=== PATIENT | male | born 1970 | race Caucasian/White ===

== ENCOUNTER 2022-02-26 13:41 | Inpatient (IN) | payer MEDICAID, OTHER ==
[~2022-02-26] VITALS: Ht 170.2 cm; Wt 86.6 kg
[2022-02-26 13:45] VITALS: BP_SYST 139
--- NOTE | 2022-02-26 14:45 | NUR ---
First contact with pt. CC of chest pain. Pt states that he did not take his medication and feels that his blood sugar is high. Pt is AxOx4, GCS 15, speech is clear, and skins are intact. Awaiting reevaluation and further orders.
[2022-02-26] MEDS ORDERED: NACL 0.9% 1,000 ML IV ONE ×2 (15:00→16:15)
[2022-02-26 15:12] LABS: BASOPHILS # (AUTO) 0.1 K/uL (0.0-0.2); BASOPHILS % (AUTO) 0.5 % (0.0-2.0); HEMATOCRIT 45.3 % (36-54); HEMOGLOBIN 14.7 g/dL (14.0-18.0); LYMPHOCYTES # (AUTO) 1.3 K/uL (1.0-5.5); LYMPHOCYTES % (AUTO) 6.9 % (20.5-51.5); MEAN CORPUSCULAR HEMOGLOBIN 29 pg (27-31); MEAN CORPUSCULAR HGB CONC 32 % (32-36); MEAN CORPUSCULAR VOLUME 89 fL (79.0-98.0); MONOCYTES # (AUTO) 0.4 K/uL (0.0-1.0); MONOCYTES % (AUTO) 2.1 % (1.7-9.3); NEUTROPHILS # (AUTO) 17.1 K/uL (1.8-7.7); NEUTROPHILS % (AUTO) 90.5 % (40.0-70.0); PLATELET COUNT (AUTO) 397 K/uL (130-430); RED BLOOD CELL COUNT(AUTO) 5.07 MIL/uL (4.2-6.2); RED CELL DISTRIBUTION WIDTH 13.1 % (9.0-15.0); WHITE BLOOD COUNT (AUTO) 18.9 K/uL (4.8-10.8)
[2022-02-26] MEDS ORDERED: INSULIN REGULAR, HUMAN 10 UNITS/0.1 ML INJ IVP ONE (15:15)
[2022-02-26] MEDS ORDERED: INSULIN REGULAR, HUMAN 100 UNITS in NS 99 ML IV ONE ×4 (15:15→18:15)
[2022-02-26 15:27] LABS: CALCIUM 9.7 mg/dL (8.4-11.0); CREATININE 1.91 mg/dL (0.55-1.30); POTASSIUM 4.9 mmol/L (3.5-5.1)
[2022-02-26 15:36] LABS: ALBUMIN 3.9 g/dL (3.4-4.8); TOTAL BILIRUBIN 0.6 mg/dL (0.0-1.0)
[2022-02-26 16:11] LABS: ACETONE, SERUM MODERATE (NEGATIVE)
[2022-02-26] MEDS ORDERED: PIPERACILLIN/TAZO 3.375 GM in NS 50 ML IV ONE (16:30)
[2022-02-26] MEDS ORDERED: NACL 0.9% 1,000 ML IV SCH (18:15)
--- NOTE | 2022-02-26 19:30 | NUR ---
was given reprt by outgoing nurse Ty. pts vtls are within normal limits. pt is alert and stable. reminded pt that he needed to keep are straight to allow infusion of insulin to infuse.
[2022-02-26] MEDS ORDERED: LORazepam 2 MG/ML VIAL IVP PRN (21:15)
[2022-02-26] MEDS ORDERED: ONDANSETRON HCL 4 MG/2 ML VIAL IVP PRN (21:15)
[2022-02-26] MEDS ORDERED: INSULIN REGULAR, HUMAN 100 UNITS/ML, 10 ML VIAL IVP ONE (21:45)
--- NOTE | 2022-02-26 21:50 | NUR ---
documented second bag of fluids/prevs started on last shift but no documentd/
--- NOTE | 2022-02-26 21:55 | NUR ---
VERBAL ORDERS RECEIVED BY DR. INTERIANO. 15 U OF REGULAR INSULIN IVP NOW. DKA PROTOCOL 0.9% NORMAL SALINE 200 MLS/HR. ALL ORDER PLACED IN CPOE.
[2022-02-26] MEDS ORDERED: DEXTROSE 50% JECT 50 ML DISP.SYRIN IVP PRN (22:00)
[2022-02-26] MEDS ORDERED: INSULIN REGULAR, HUMAN 100 UNITS in NS 99 ML IV PRN ×2 (22:00)
[2022-02-26] MEDS ORDERED: PIPERACILLIN/TAZOBACTAM 3.375 GM/VIAL (ZOSYN) IV ONE (22:20)
--- NOTE | 2022-02-26 22:25 | NUR ---
PROVIDED RPRT TO [facility] ICU PT WILL BE FLIP TO ROOM 27
[2022-02-26 22:26] LABS: PHOSPHORUS 5.3 mg/dL (2.7-4.5)
--- NOTE | 2022-02-26 22:56 | NUR ---
Patient will be admitted to care of DR CHADWICK. Admitted to unit. Will go to room . Belongings list completed. Complete and up to date summary report printed. SBAR report to be given at bedside with opportunity for questions.
[2022-02-26] MEDS: NACL 0.9% 1,000 ML IV SCH (23:43)
[2022-02-26] MEDS: PIPERACILLIN/TAZO 3.375/DEX-IS 50 ML IV SCH (23:43)
[2022-02-26 23:47] VITALS: BP_SYST 153
[2022-02-27] VITALS (21 sets, daily range): BP systolic 111–179
[2022-02-27] MEDS: NACL 0.9% 1,000 ML IV SCH ×2 (05:13→20:56)
[2022-02-27] MEDS: PIPERACILLIN/TAZO 3.375/DEX-IS 50 ML IV SCH ×4 (05:14→23:39)
[2022-02-27 06:24] LABS: BASOPHILS # (AUTO) 0.1 K/uL (0.0-0.2); BASOPHILS % (AUTO) 0.6 % (0.0-2.0); HEMATOCRIT 39.9 % (36-54); HEMOGLOBIN 13.4 g/dL (14.0-18.0); LYMPHOCYTES # (AUTO) 1.9 K/uL (1.0-5.5); MEAN CORPUSCULAR HEMOGLOBIN 29 pg (27-31); MEAN CORPUSCULAR HGB CONC 34 % (32-36); MEAN CORPUSCULAR VOLUME 86 fL (79.0-98.0); MONOCYTES # (AUTO) 0.6 K/uL (0.0-1.0); MONOCYTES % (AUTO) 3.6 % (1.7-9.3); NEUTROPHILS # (AUTO) 14.6 K/uL (1.8-7.7); NEUTROPHILS % (AUTO) 84.8 % (40.0-70.0); PLATELET COUNT (AUTO) 380 K/uL (130-430); RED BLOOD CELL COUNT(AUTO) 4.65 MIL/uL (4.2-6.2); RED CELL DISTRIBUTION WIDTH 12.7 % (9.0-15.0); WHITE BLOOD COUNT (AUTO) 17.2 K/uL (4.8-10.8)
[2022-02-27 06:59] LABS: ALBUMIN 3.2 g/dL (3.4-4.8); CALCIUM 8.8 mg/dL (8.4-11.0); CREATININE 1.38 mg/dL (0.55-1.30); PHOSPHORUS 2.4 mg/dL (2.7-4.5); POTASSIUM 3.9 mmol/L (3.5-5.1); TOTAL BILIRUBIN 0.4 mg/dL (0.0-1.0)
[2022-02-27] MEDS: amLODIPine BESYLATE 10 MG TABLET PO SCH (09:51)
[2022-02-27 12:57] LABS: CALCIUM 8.5 mg/dL (8.4-11.0); CREATININE 1.25 mg/dL (0.55-1.30)
[2022-02-27] MEDS: HEPARIN SODIUM,PORCINE 5,000 UNITS/ML VIAL SUBCUT SCH ×2 (13:30→20:58)
[2022-02-27 16:44] LABS: BILIRUBIN,URINE NEGATIVE (NEGATIVE); CLARITY/URINE CLEAR (CLEAR); COLOR,URINE YELLOW (YELLOW); GLUCOSE,URINE 3+ (NEGATIVE); KETONES,URINE 2+ (NEGATIVE); LEUKOCYTE ESTERASE ,URINE NEGATIVE (NEGATIVE); NITRITE, URINE NEGATIVE (NEGATIVE); PROTEIN URINE TRACE (NEGATIVE); UROBILINOGEN,URINE 0.2 (0.2-1.0)
[2022-02-27 16:53] LABS: BLOOD, URINE TRACE (NEGATIVE)
[2022-02-27 17:33] LABS: BACTERIA,URINE FEW /HPF (None Seen); RBC,URINE 0-3 /HPF (0-3); WBC,URINE 0-3 /HPF (0-3)
[2022-02-27 17:34] LABS: MUCUS,URINE None Seen /LPF (None Seen); URIC ACID CRYSTALS,URINE 0-10 /HPF (None Seen)
[2022-02-27] MEDS ORDERED: INSULIN NPH 100 UNITS/ML 10 ML VIAL SUBCUT ONE (18:00)
[2022-02-27] MEDS: INSULIN Lispro 100 UNITS/ML VIAL (humaLOG) SUBCUT SCH ×2 (18:03→20:55)
[2022-02-27] MEDS: INSULIN LISPRO SLIDING SCALE 100 UNITS/ML VIAL (humaLOG) SUBCUT SCH ×2 (18:06→20:55)
[2022-02-28] VITALS (19 sets, daily range): BP systolic 134–162
[2022-02-28] MEDS: NACL 0.9% 1,000 ML IV SCH ×4 (00:40→17:05)
[2022-02-28] MEDS ORDERED: LOPERAMIDE HCL 2 MG CAPSULE ONE (00:48)
[2022-02-28] MEDS: LOPERAMIDE HCL 2 MG CAPSULE PO PRN ×2 (01:50→02:15)
[2022-02-28 06:14] LABS: BASOPHILS # (AUTO) 0.1 K/uL (0.0-0.2); BASOPHILS % (AUTO) 0.7 % (0.0-2.0); EOSINOPHILS # (AUTO) 0.1 K/uL (0.0-0.4); EOSINOPHILS % (AUTO) 0.5 % (0.0-4.0); HEMATOCRIT 39.3 % (36-54); HEMOGLOBIN 12.9 g/dL (14.0-18.0); LYMPHOCYTES # (AUTO) 1.6 K/uL (1.0-5.5); LYMPHOCYTES % (AUTO) 10.9 % (20.5-51.5); MEAN CORPUSCULAR HEMOGLOBIN 28 pg (27-31); MEAN CORPUSCULAR HGB CONC 33 % (32-36); MEAN CORPUSCULAR VOLUME 86 fL (79.0-98.0); MONOCYTES # (AUTO) 0.5 K/uL (0.0-1.0); MONOCYTES % (AUTO) 3.5 % (1.7-9.3); NEUTROPHILS # (AUTO) 12.1 K/uL (1.8-7.7); NEUTROPHILS % (AUTO) 84.4 % (40.0-70.0); PLATELET COUNT (AUTO) 331 K/uL (130-430); RED BLOOD CELL COUNT(AUTO) 4.56 MIL/uL (4.2-6.2); WHITE BLOOD COUNT (AUTO) 14.3 K/uL (4.8-10.8)
[2022-02-28] MEDS: PIPERACILLIN/TAZO 3.375/DEX-IS 50 ML IV SCH ×4 (06:20→23:18)
[2022-02-28] MEDS: HEPARIN SODIUM,PORCINE 5,000 UNITS/ML VIAL SUBCUT SCH ×3 (06:21→21:05)
[2022-02-28] MEDS: INSULIN Lispro 100 UNITS/ML VIAL (humaLOG) SUBCUT SCH ×4 (06:23→21:01)
[2022-02-28] MEDS: INSULIN LISPRO SLIDING SCALE 100 UNITS/ML VIAL (humaLOG) SUBCUT SCH ×4 (06:24→21:02)
[2022-02-28] MEDS: INSULIN NPH 100 UNITS/ML 10 ML VIAL SUBCUT SCH ×2 (06:25→17:15)
[2022-02-28 06:57] LABS: ALBUMIN 2.8 g/dL (3.4-4.8); C-REACTIVE PROTEIN QUANT 2.8 mg/dL (0-0.5); CALCIUM 7.6 mg/dL (8.4-11.0); CREATININE 1.02 mg/dL (0.55-1.30); PHOSPHORUS 1.9 mg/dL (2.7-4.5); POTASSIUM 3.5 mmol/L (3.5-5.1); TOTAL BILIRUBIN 0.4 mg/dL (0.0-1.0)
[2022-02-28] MEDS ORDERED: CALCIUM CARBONATE 500 MG/ TAB.CHEW PO PRN (07:15)
[2022-02-28] MEDS: FAMOTIDINE 20 MG TABLET PO SCH ×2 (08:21→20:57)
[2022-02-28] MEDS: amLODIPine BESYLATE 10 MG TABLET PO SCH (08:21)
[2022-02-28 09:59] LABS: ERYTHROCYTE SEDIMENTATION RATE 34 MM/HR (0-15)
--- NOTE | 2022-02-28 16:01 | NUR ---
Dietitian Recommendations * CCHO, cardiac diet, Glucerna BID (ONS yields 440 kcal/day, 20 gm protein/day) AIDA, RD Please refer to Nutrition Assessment for details. Addendum: 02/28/22 at [address] Amended: Links added.
--- NOTE | 2022-02-28 16:30 | NUR ---
SBAR REPORT GIVEN TO MAHENDRA TY RN. PT TRANSFERRING FROM ICU TO MED/SURG BED 110B. PT VSS. NAD NOTED. AAOX4. NS@75CC/HR. TWO PERIPHERAL IV ACCESS. PT ABLE TO STAND WITH MIN ASSIST TO BEDSIDE COMMODE. NO OTHER COMPLAINTS AT THIS TIME. END OF CARE.
--- NOTE | 2022-02-28 16:30 | NUR ---
Opening Note Patient was brought from ICU. Stable. Received report from charge nurse Kendy ELLIOTT who received patient.
[2022-02-28] MEDS ORDERED: NEU300 PO (17:34)
[2022-02-28] MEDS ORDERED: OXYC-133 PO (17:34)
--- NOTE | 2022-02-28 19:30 | NUR ---
OPENING NOTES: Patient received from AM shift. Patient is AA&Ox4 able to make needs known, Denies any current pain or discomfort at this time. Chest rise is even and unlabored on RA. Normal heart sounds present on med-surg monitoring. BS active x4, denies pain with palpation, no distention is noted. Patient is ambulatory with a cane and continent of B&B. Safety measures are in place, call light is within reach. Will resume care and continue to monitor throughout the shift.
--- NOTE | 2022-02-28 19:47 | NUR ---
Closing Note Patient is sitting up in bed. No apparent distress noted. Call light within reach. Safety and fall precautions in place. All needs met. Endorsed care to steward/stewardess night RN Pam.
[2022-02-28] MEDS ORDERED: INSULIN GLARGINE 100 UNITS/ML 10 ML VIAL SUBCUT SCH (21:00)
[2022-03-01] VITALS: BP_SYST 121
--- NOTE | 2022-03-01 00:30 | NUR ---
ROUNDS: Patient is resting no s/s of distress at this time. Patient denies any pain or discomfort. Patient reports that he had accident incontinent episode of the bowel, and was requesting assistance with cleaning up. Assistance was provided with basic hygiene care and bed linen was changed. Will continue to monitor.
[2022-03-01] MEDS: PIPERACILLIN/TAZO 3.375/DEX-IS 50 ML IV SCH ×3 (06:29→18:01)
[2022-03-01] MEDS: HEPARIN SODIUM,PORCINE 5,000 UNITS/ML VIAL SUBCUT SCH ×3 (06:30→21:56)
--- NOTE | 2022-03-01 06:37 | NUR ---
ENDOCRINE MD DR GARRISON SAYED WAS CALLED, RE: BS OF 69. LEFT A VM ON HIS CELL.
[2022-03-01] MEDS: INSULIN Lispro 100 UNITS/ML VIAL (humaLOG) SUBCUT SCH ×4 (06:49→22:06)
[2022-03-01] MEDS: INSULIN LISPRO SLIDING SCALE 100 UNITS/ML VIAL (humaLOG) SUBCUT SCH ×4 (06:50→22:12)
[2022-03-01 07:08] LABS: BASOPHILS # (AUTO) 0.1 K/uL (0.0-0.2); BASOPHILS % (AUTO) 0.6 % (0.0-2.0); EOSINOPHILS # (AUTO) 0.3 K/uL (0.0-0.4); EOSINOPHILS % (AUTO) 2.4 % (0.0-4.0); HEMATOCRIT 36.1 % (36-54); HEMOGLOBIN 12.1 g/dL (14.0-18.0); LYMPHOCYTES # (AUTO) 3.3 K/uL (1.0-5.5); LYMPHOCYTES % (AUTO) 31.6 % (20.5-51.5); MEAN CORPUSCULAR HEMOGLOBIN 29 pg (27-31); MEAN CORPUSCULAR HGB CONC 34 % (32-36); MEAN CORPUSCULAR VOLUME 86 fL (79.0-98.0); MONOCYTES # (AUTO) 0.6 K/uL (0.0-1.0); MONOCYTES % (AUTO) 5.8 % (1.7-9.3); NEUTROPHILS # (AUTO) 6.3 K/uL (1.8-7.7); NEUTROPHILS % (AUTO) 59.6 % (40.0-70.0); PLATELET COUNT (AUTO) 318 K/uL (130-430); RED BLOOD CELL COUNT(AUTO) 4.22 MIL/uL (4.2-6.2); RED CELL DISTRIBUTION WIDTH 12.7 % (9.0-15.0); WHITE BLOOD COUNT (AUTO) 10.6 K/uL (4.8-10.8)
--- NOTE | 2022-03-01 07:30 | NUR ---
CLOSING NOTES: Patient is in bed resting no s/s of distress is noted at this time. Patient is AA&Ox4 able to make needs known. Patient morning BS was assessed at 64, 2 4oz servings of OJ was given and patient received breakfast tray and is currently eating. No s/s of hypoglycemia is noted. Dr. Dempsey was notified and orders were received to HOLD am 5units of Humolog and to decrease the Lantus 25units BID to Lantus 15units BID starting this morning at 0900. Orders carried out. All current shift needs have been met and report was giving to Laura ELLIOTT who will be resuming care.
[2022-03-01 07:49] LABS: ALBUMIN 2.6 g/dL (3.4-4.8); CALCIUM 7.7 mg/dL (8.4-11.0); CREATININE 0.73 mg/dL (0.55-1.30); TOTAL BILIRUBIN 0.2 mg/dL (0.0-1.0)
--- NOTE | 2022-03-01 08:22 | NUR ---
Received patient in bed resting comfortably, AAOX4, presents calm and cooperative, able to express needs. No c/o pain or discomfort. Respirations are non-labored. Skin is clean,warm and dry to touch. IV access is patent, dry and secure, no s/sx of redness or swelling observed. Bed is locked in lowest position, call light in reach. Nurse will continue care and monitor for changes in status.
[2022-03-01 08:51] LABS: POTASSIUM 2.6 mmol/L (3.5-5.1)
[2022-03-01] MEDS: FAMOTIDINE 20 MG TABLET PO SCH ×2 (09:37→21:53)
[2022-03-01] MEDS: amLODIPine BESYLATE 10 MG TABLET PO SCH (09:37)
[2022-03-01] MEDS: KCL 20 mEq in 100 mL (PREMIX) 100 ML IV SCH ×2 (09:37→10:36)
[2022-03-01] MEDS: INSULIN GLARGINE 100 UNITS/ML 10 ML VIAL SUBCUT SCH ×2 (09:39→22:09)
[2022-03-01 10:46] VITALS: BP_SYST 148
--- NOTE | 2022-03-01 11:54 | NUR ---
Patient in bed resting comfortably. No c/o pain or discomfort. Respirations are non-labored. Skin is clean,warm and dry to touch. IV access is patent, dry and secure, no s/sx of redness or swelling observed. Bed is locked in lowest position, call light in reach. Nurse will continue care and monitor for changes in status.
[2022-03-01] MEDS: NACL 0.9% 1,000 ML IV SCH (12:01)
[2022-03-01 15:55] VITALS: BP_SYST 138
[2022-03-01] MEDS ORDERED: POTASSIUM CHLORIDE 20 MEQ TAB.PRT.SR PO ONE (17:45)
--- NOTE | 2022-03-01 19:10 | NUR ---
Patient in bed resting comfortably. No c/o pain or discomfort. Respirations are non-labored. Skin is clean,warm and dry to touch. IV access is patent, dry and secure, no s/sx of redness or swelling observed. Bed is locked in lowest position, call light in reach. Nurse endorse patient to night order selector for continue care and monitor for changes in status.
[2022-03-01 20:00] VITALS: BP_SYST 149
[2022-03-02] MEDS: PIPERACILLIN/TAZO 3.375/DEX-IS 50 ML IV SCH ×3 (00:47→12:53)
[2022-03-02] MEDS: NACL 0.9% 1,000 ML IV SCH (00:49)
[2022-03-02] MEDS: HEPARIN SODIUM,PORCINE 5,000 UNITS/ML VIAL SUBCUT SCH (05:15)
[2022-03-02] MEDS: INSULIN Lispro 100 UNITS/ML VIAL (humaLOG) SUBCUT SCH ×2 (06:38→12:50)
[2022-03-02] MEDS: INSULIN LISPRO SLIDING SCALE 100 UNITS/ML VIAL (humaLOG) SUBCUT SCH ×2 (06:42→12:51)
[2022-03-02 07:23] LABS: BASOPHILS # (AUTO) 0.1 K/uL (0.0-0.2); BASOPHILS % (AUTO) 0.5 % (0.0-2.0); EOSINOPHILS # (AUTO) 0.2 K/uL (0.0-0.4); EOSINOPHILS % (AUTO) 2.1 % (0.0-4.0); HEMATOCRIT 40.3 % (36-54); HEMOGLOBIN 13.6 g/dL (14.0-18.0); LYMPHOCYTES # (AUTO) 2.6 K/uL (1.0-5.5); LYMPHOCYTES % (AUTO) 26.3 % (20.5-51.5); MEAN CORPUSCULAR HEMOGLOBIN 29 pg (27-31); MEAN CORPUSCULAR HGB CONC 34 % (32-36); MEAN CORPUSCULAR VOLUME 85 fL (79.0-98.0); MONOCYTES # (AUTO) 0.5 K/uL (0.0-1.0); MONOCYTES % (AUTO) 5.4 % (1.7-9.3); NEUTROPHILS # (AUTO) 6.5 K/uL (1.8-7.7); NEUTROPHILS % (AUTO) 65.7 % (40.0-70.0); PLATELET COUNT (AUTO) 299 K/uL (130-430); RED BLOOD CELL COUNT(AUTO) 4.73 MIL/uL (4.2-6.2); RED CELL DISTRIBUTION WIDTH 12.5 % (9.0-15.0); WHITE BLOOD COUNT (AUTO) 9.9 K/uL (4.8-10.8)
[2022-03-02] MEDS ORDERED: PANTOPRAZOLE SODIUM 40 MG TAB PO ONE (08:15)
[2022-03-02 08:21] LABS: ALBUMIN 2.9 g/dL (3.4-4.8); CALCIUM 7.8 mg/dL (8.4-11.0); CREATININE 0.8 mg/dL (0.55-1.30); POTASSIUM 3.6 mmol/L (3.5-5.1); TOTAL BILIRUBIN 0.2 mg/dL (0.0-1.0)
[2022-03-02 08:39] VITALS: BP_SYST 138
[2022-03-02] MEDS ORDERED: INSULIN GLARGINE 100 UNITS/ML 10 ML VIAL SUBCUT SCH (09:00)
[2022-03-02] MEDS: amLODIPine BESYLATE 10 MG TABLET PO SCH (09:44)
[2022-03-02] MEDS ORDERED: NOR10 PO (09:57)
[2022-03-02] MEDS ORDERED: INSU100V9 SUBCUT (09:57)
[2022-03-02] MEDS ORDERED: BLOO-1360 XX (09:57)
[2022-03-02] MEDS ORDERED: PRO40 PO (09:57)
[2022-03-02] MEDS ORDERED: GABAPENTIN 400 MG CAPSULE PO ONE (10:00)
[2022-03-02] MEDS ORDERED: OXYCODONE/ACETAMINOPHEN *10*mg/325 mg TABLET PO PRN (10:00)
[2022-03-02] MEDS ORDERED: NALOXONE HCL 0.4 MG/ML AMP (NARCAN) IVP PRN (11:30)
--- NOTE | 2022-03-02 11:40 | NUR ---
CM: Mir Carranza CM/Patricia mehta. has arranged : 1.Endocrinology appointment : dr. Damon's office tel # [phone] staff will call patient for appt date and time. 2. Home health: [facility] # [phone] 3. Appointment with PCP: Tali Dent on February at 1015 am. 4. There will be a telehealth call form Patricia MEHTA in 2-3 days to follow up.
[2022-03-02 13:11] VITALS: BP_SYST 129
[2022-03-02 14:05] VITALS: BP_SYST 132
[2022-03-02] MEDS ORDERED: GABAPENTIN 400 MG CAPSULE PO SCH (21:00)
[2022-03-03] MEDS ORDERED: PANTOPRAZOLE SODIUM 40 MG TAB PO SCH (09:00)
--- NOTE | 2022-03-03 10:09 | NUR ---
Dispo code 06, home with HH.
== END 2022-03-02 14:20 | disposition home health service (06) | DRG 637 ==
LOC: SED 13:41 → SIC 20:08 → SMU 02-28 16:34
PROVIDERS: ADMIT Preventive Medicine Preventive Medicine/Occupational Environmental Medicine; ATTEND Internal Medicine Hospice and Palliative Medicine
DX: E11.10 Type 2 diabetes mellitus with ketoacidosis without coma (principal); N17.0 Acute kidney failure with tubular necrosis; E87.1 Hypo-osmolality and hyponatremia; L03.115 Cellulitis of right lower limb; R65.10 Systemic inflammatory response syndrome (SIRS) of non-infectious origin without acute organ dysfunction; E86.0 Dehydration; I12.9 Hypertensive chronic kidney disease with stage 1 through stage 4 chronic kidney disease, or unspecified chronic kidney disease; N18.9 Chronic kidney disease, unspecified; E11.22 Type 2 diabetes mellitus with diabetic chronic kidney disease; E11.40 Type 2 diabetes mellitus with diabetic neuropathy, unspecified; E78.00 Pure hypercholesterolemia, unspecified; G89.4 Chronic pain syndrome; J45.909 Unspecified asthma, uncomplicated; Z96.41 Presence of insulin pump (external) (internal); Z20.822 Contact with and (suspected) exposure to COVID-19; E11.21 Type 2 diabetes mellitus with diabetic nephropathy; K21.9 Gastro-esophageal reflux disease without esophagitis; R13.10 Dysphagia, unspecified; Z79.4 Long term (current) use of insulin; Z83.3 Family history of diabetes mellitus; Z79.899 Other long term (current) drug therapy; Z88.8 Allergy status to other drugs, medicaments and biological substances
CPT/HCPCS: 36415; 36600; 71045; 80048; 80053; 81000; 82009; 82803-TC; 82962; 83735; 83880; 84100; 84484; 85025; 85651-TC; 86140; 87040; 93005; 96361; 96374; 99291; J1644; J1815; J2405; J2543; J3480; J7030